=== PATIENT | male | born 1995 | race Caucasian/White ===

== ENCOUNTER 2017-01-04 16:21 | Inpatient (IN) | payer OTHER ==
[2017-01-04] MEDS ORDERED: NORCO 5/325 MG TAB PO PRN (17:35)
[2017-01-04] MEDS: NS 1000 ML 1,000 ML IV SCH (17:57)
[2017-01-04 18:03] LABS: BASOPHILS # (AUTO) 0.1 X10^3/uL (0.0-0.1); EOSINOPHILS # (AUTO) 0.1 x10^3/uL (0.0-0.2); EOSINOPHILS % (AUTO) 0.9 % (0.9-2.9); HEMATOCRIT 49.5 % (42.0-54.0); HEMOGLOBIN 17.4 g/dL (13.5-18.0); LYMPHOCYTES # (AUTO) 2.4 X10^3/uL (1.3-2.9); LYMPHOCYTES % (AUTO) 25.4 % (21.0-51.0); MEAN CORPUSCULAR HEMOGLOBIN 30.7 pg (27.0-34.0); MEAN CORPUSCULAR HGB CONC 35.1 g/dL (33.0-35.0); MEAN CORPUSCULAR VOLUME 87.5 fL (80.0-100.0); MEAN PLATELET VOLUME 7.2 fL (7.4-11.0); MONOCYTES # (AUTO) 0.8 x10^3/uL (0.3-0.8); MONOCYTES % (AUTO) 7.9 % (0.0-13.0); NEUTROPHILS # (AUTO) 6.2 x10^3/uL (2.2-4.8); NEUTROPHILS % (AUTO) 64.8 % (42.0-75.0); PLATELET COUNT 312 X10^3/uL (150.0-450.0); RED BLOOD COUNT 5.65 X10^6/uL (4.7-6.0); RED CELL DISTRIBUTION WIDTH 12.4 % (11.6-16.5); WHITE BLOOD COUNT 9.5 X10^3/uL (3.6-10.0)
[2017-01-04] MEDS: TORADOL 30 MG VIAL IVP SCH ×2 (18:16→23:48)
[2017-01-04 18:19] LABS: HEMOGLOBIN A1C 10.8 % (4.5-6.2)
[2017-01-04 18:28] LABS: ALANINE AMINOTRANSFERASE 20 Units/L (12-78); ALBUMIN 3.9 g/dL (3.4-5.0); ALKALINE PHOSPHATASE 112 Units/L (46-116); ASPARTATE AMINO TRANSFERASE 12 Units/L (15-37); BLOOD UREA NITROGEN 22 mg/dL (7-18); CALCIUM 8.8 mg/dL (8.5-10.1); CARBON DIOXIDE 17.3 mmol/L (21-32); CHLORIDE 95 mmol/L (98-107); COR NA(FOR HYPERGLY) 140 mmol/L (136-145); CREATININE 1.24 mg/dL (0.70-1.30); FREE T4 (FREE THYROXINE) 1.37 ng/dL (0.76-1.46); GLUCOSE 383 mg/dL (65-99); SODIUM 133 mmol/L (136-145); TOTAL PROTEIN 7.9 g/dL (6.4-8.2); TSH (3RD GENERATION) 4.401 uIU/mL (0.358-3.74); eGFR BLACK RACES > 60 (>60); eGFR NON BLACK RACES > 60 (>60)
--- NOTE | 2017-01-04 20:30 | RAD ---
HISTORY: Shortness of breath Study: Two-view chest Comparison: None Findings: The trachea is midline. The cardiac silhouette is unremarkable. The lungs are clear without focal infiltrate or effusion. The bony thorax is unremarkable. IMPRESSION: 1. No acute cardiopulmonary disease. Reported By:
[2017-01-04 20:47] VITALS: BMI 24.1
[2017-01-04] MEDS: COLACE CAP 100 MG PO SCH (21:53)
[2017-01-04] MEDS: MILK OF MAGNESIA PO SCH (21:53)
[2017-01-04] MEDS: SNACK - Diabetic Appropriate PO SCH (21:54)
[2017-01-04] MEDS: TOUJEO SOLOSTAR PEN SC SCH (21:54)
[2017-01-04] MEDS: HumuLIN R SUBCUT PRN (21:55)
[2017-01-04 22:07] LABS: BILIRUBIN,URINE NEGATIVE (NEGATIVE); BLOOD/HEMOGLOBIN,URINE NEGATIVE (NEGATIVE); GLUCOSE, URINE 4+ (NEGATIVE); KETONES,URINE 4+ (NEGATIVE); LEUKOCYTE ESTERASE ,URINE NEGATIVE (NEGATIVE); NITRITES,URINE NEGATIVE (NEGATIVE); PROTEIN,URINE NEGATIVE (NEGATIVE); UROBILINOGEN,URINE NORMAL (NORMAL)
[2017-01-04 22:19] LABS: AMORPHOUS SEDIMENT,UR TRACE /HPF (NEGATIVE); APPEARANCE,URINE CLEAR (CLEAR); BACTERIA,URINE TRACE /HPF (NEGATIVE); COLOR,URINE PALE YELLOW (YELLOW); RBC,URINE 0-1 /HPF (NEGATIVE); SQUAMOUS EPITHELIAL CELL,UR RARE /HPF (NEGATIVE)
[2017-01-05] MEDS: TORADOL 30 MG VIAL IVP SCH (06:09)
--- NOTE | 2017-01-05 10:28 | DR.UPDATE ---
H&P Update History and Physical Update: History and Physical reviewed and patient examined. SEE SCANNED H & P FROM DR PARKS'S OFFICE COMPLETED ON 2016 Changes noted: NO
--- NOTE | 2017-01-05 10:31 | PCM.PROG ---
Progress Note - Progress Note for Day of Date: 01/05/17 - Subjective Subjective: 21 WM ADMITTED ONE DAY AGO WITH UNCONTROLLED BLOOD SUGAR AND RIGHT SHOULDER PAIN. PT BS ON CMP 525 THIS AM, INCREASE PO WATER INTAKE, URINE ACETONE , SSI AND TOUJEO, REPEAT LABS THIS AFTERNOON, MRI SHOULDER PENDING - Past Medical Family Social History Past Med/Fam/Surg Hx: No changes since H&P Allergies: Allergies No Known Drug Allergies Allergy (Verified 01/04/17 17:56) - Review of Systems ROS: No change since H&P - Vital Signs and I&O's Vital Signs: Temperature 97.8 F Pulse Rate [Apical] 53 Respiratory Rate 18 Blood Pressure [Right Arm] 117/61 Blood Pressure [Left Arm] 112/62 O2 Sat by Pulse Oximetry 98 Intake and Output: Intake & Output 01/02/17 01/03/17 01/04/17 01/05/17 11:59 11:59 11:59 11:59 Intake Total 1900 Output Total 1600 Balance 300 - Physical Exam Oriented: Normal Eyes: Normal Ear: Normal Nose: Normal Throat: Normal Respiratory: Normal Cardiovascular: Normal : Normal Auscultation: Bowel Sounds: Normal Tenderness: Epigastric Skin: Normal Musculoskeletal: Right, Shoulder, Swelling, Tender Mood Description: Calm Speech Pattern: Clear, Appropriate - Laboratory and Diagnostics Result Diagrams: 01/04/17 17:50 01/04/17 20:47 Labs: Laboratory WBC 9.5 X10^3/uL (3.6-10.0) 01/04/17 17:50 RBC 5.65 X10^6/uL (4.7-6.0) 01/04/17 17:50 Hgb 17.4 g/dL (13.5-18.0) 01/04/17 17:50 Hct 49.5 % (42.0-54.0) 01/04/17 17:50 MCV 87.5 fL (80.0-100.0) 01/04/17 17:50 MCH 30.7 pg (27.0-34.0) 01/04/17 17:50 MCHC 35.1 g/dL (33.0-35.0) H 01/04/17 17:50 RDW 12.4 % (11.6-16.5) 01/04/17 17:50 Plt Count 312 X10^3/uL (150.0-450.0) 01/04/17 17:50 MPV 7.2 fL (7.4-11.0) L 01/04/17 17:50 Neut % 64.8 % (42.0-75.0) 01/04/17 17:50 Lymph % 25.4 % (21.0-51.0) 01/04/17 17:50 [place] % 7.9 % (0.0-13.0) 01/04/17 17:50 Eos % 0.9 % (0.9-2.9) 01/04/17 17:50 Baso % 1.0 % (0.2-1.0) 01/04/17 17:50 Neut # 6.2 x10^3/uL (2.2-4.8) H 01/04/17 17:50 Lymph # 2.4 X10^3/uL (1.3-2.9) 01/04/17 17:50 [place] # 0.8 x10^3/uL (0.3-0.8) 01/04/17 17:50 Eos # 0.1 x10^3/uL (0.0-0.2) 01/04/17 17:50 Baso # 0.1 X10^3/uL (0.0-0.1) 01/04/17 17:50 Absolute Nucleated RBC 0.0 /100WBC 01/04/17 17:50 Sodium 133 mmol/L (136-145) L 01/04/17 17:50 Corrected Sodium 140 mmol/L (136-145) 01/04/17 17:50 Potassium 4.5 mmol/L (3.5-5.1) 01/04/17 17:50 Chloride 95 mmol/L (98-107) L 01/04/17 17:50 Carbon Dioxide 17.3 mmol/L (21-32) L 01/04/17 17:50 BUN 22 mg/dL (7-18) H 01/04/17 17:50 Creatinine 1.24 mg/dL (0.70-1.30) 01/04/17 17:50 Est GFR (MDRD) Af Amer > 60 (>60) 01/04/17 17:50 Est GFR (MDRD) Non-Af > 60 (>60) 01/04/17 17:50 Glucose 525 mg/dL (65-99) H* 01/04/17 20:47 Hemoglobin A1c 10.8 % (4.5-6.2) H 01/04/17 17:50 Calcium 8.8 mg/dL (8.5-10.1) 01/04/17 17:50 Corrected Calcium TNP 01/04/17 17:50 Total Bilirubin 1.00 mg/dL (0.2-1.0) 01/04/17 17:50 AST 12 Units/L (15-37) L 01/04/17 17:50 ALT 20 Units/L (12-78) 01/04/17 17:50 Alkaline Phosphatase 112 Units/L (46-116) 01/04/17 17:50 Total Protein 7.9 g/dL (6.4-8.2) 01/04/17 17:50 Albumin 3.9 g/dL (3.4-5.0) 01/04/17 17:50 Globulin 4.0 g/dL (2.5-4.5) 01/04/17 17:50 Albumin/Globulin Ratio 1.0 Ratio (1.1-2.1) L 01/04/17 17:50 Free T4 1.37 ng/dL (0.76-1.46) 01/04/17 17:50 TSH 3rd Generation 4.401 uIU/mL (0.358-3.74) H 01/04/17 17:50 Specimen Type Clean catch urine 01/04/17 21:31 Urine Color Pale yellow (YELLOW) 01/04/17 21:31 Urine Appearance Clear (CLEAR) 01/04/17 21:31 Urine pH 5.0 (5.0 - 8.0) 01/04/17 21:31 Ur Specific [place] 1.020 (1.000-1.030) 01/04/17 21:31 Urine Protein Negative (NEGATIVE) 01/04/17 21:31 Urine Glucose (UA) 4+ (NEGATIVE) 01/04/17 21:31 Urine Ketones 4+ (NEGATIVE) 01/04/17 21:31 Urine Occult Blood Negative (NEGATIVE) 01/04/17 21:31 Urine Nitrite Negative (NEGATIVE) 01/04/17 21:31 Urine Bilirubin Negative (NEGATIVE) 01/04/17 21:31 Urine Urobilinogen Normal (NORMAL) 01/04/17 21:31 Ur Leukocyte Esterase Negative (NEGATIVE) 01/04/17 21:31 Urine RBC 0-1 /HPF (NEGATIVE) 01/04/17 21:31 Urine WBC None seen /HPF (NEGATIVE) 01/04/17 21:31 Ur Squamous Epith Cells Rare /HPF (NEGATIVE) 01/04/17 21:31 Amorphous Sediment Trace /HPF (NEGATIVE) 01/04/17 21:31 Urine Bacteria Trace /HPF (NEGATIVE) 01/04/17 21:31 Ur Culture Indicated? Yes/culture set up 01/04/17 21:31 - Plan (1) Uncontrolled diabetes mellitus Status: Acute Qualifiers: Diabetes mellitus type: D Diabetes mellitus complication status: D Diabetes mellitus complication detail: D Diabetic retinopathy severity: D Proliferative retinopathy type: P Diabetes mellitus macular edema: D Diabetes mellitus spa assistant manager insulin use: D Laterality: L Chronic kidney disease stage: C Plan: ACETONE LEVEL, SSI, AGGRESSIVE HYDRATION (2) Shoulder pain, acute Status: Acute Qualifiers: Laterality: L (3) Shoulder joint pain Status: Acute Qualifiers: Laterality: L
[2017-01-05] MEDS: NS 1000 ML 1,000 ML IV SCH ×2 (11:49→20:35)
[2017-01-05] MEDS: HumuLIN R SUBCUT PRN ×2 (12:19→20:37)
[2017-01-05] MEDS: MILK OF MAGNESIA PO SCH ×2 (13:56→20:36)
--- NOTE | 2017-01-05 14:51 | MRI ---
MRI right shoulder without contrast Indication: Right shoulder pain Technique: Multisequence, multiplanar MR images of the right shoulder were obtained without IV contr ast. Comparison: None Findings: A small bone island is noted within the humeral head. Marrow signal is otherwise normal. N o acute fracture, malalignment or suspicious osseous lesion is seen. There is a low grade, partial thickness interstitial tear of the cranial subscapularis tendon near i ts humeral insertion (image 15-16, series 501, image 9-12, series 901). The long head biceps tendon is intact and remains appropriately positioned within the bicipital groove, although small fluid is present within the extra-articular long head biceps tendon sheath. The supraspinatus, infraspinatus and teres minor are intact. No edema or atrophy of the rotator cuff musculature is seen. The glenohumeral and AC joint appear well maintained without significant degenerative change. The ty pe 2 acromion demonstrates mild lateral downsloping with encroachment upon the subjacent supraspinat us. There is no significant glenohumeral joint effusion or fluid within the subdeltoid/subacromial b ursa. No focal labral defects are identified. Impression: 1. Low-grade, partial-thickness interstitial tear of the distal subscapularis tendon, as detailed ab ove. 2. Mild tenosynovitis of the long head biceps tendon, which is otherwise intact and remains appropri ately positioned within the bicipital groove. 3. Mild lateral downsloping of the type 2 acromion with encroachment upon the supraspinatus. Please correlate clinically for signs of impingement. Reported By:
[2017-01-05 16:09] LABS: BLOOD UREA NITROGEN 21 mg/dL (7-18); CALCIUM 8.1 mg/dL (8.5-10.1); CARBON DIOXIDE 20.6 mmol/L (21-32); CHLORIDE 104 mmol/L (98-107); COR NA(FOR HYPERGLY) 141 mmol/L (136-145); CREATININE 1.32 mg/dL (0.70-1.30); GLUCOSE 283 mg/dL (65-99); SODIUM 137 mmol/L (136-145); eGFR BLACK RACES > 60 (>60); eGFR NON BLACK RACES > 60 (>60)
[2017-01-05] MEDS: COLACE CAP 100 MG PO SCH (20:36)
[2017-01-05] MEDS: TOUJEO SOLOSTAR PEN SC SCH (20:36)
[2017-01-05] MEDS: SNACK - Diabetic Appropriate PO SCH ×2 (20:39→21:31)
[2017-01-06 06:05] LABS: BASOPHILS # (AUTO) 0.1 X10^3/uL (0.0-0.1); BASOPHILS % (AUTO) 1.2 % (0.2-1.0); EOSINOPHILS # (AUTO) 0.2 x10^3/uL (0.0-0.2); EOSINOPHILS % (AUTO) 2.4 % (0.9-2.9); HEMATOCRIT 40.8 % (42.0-54.0); HEMOGLOBIN 14.6 g/dL (13.5-18.0); LYMPHOCYTES % (AUTO) 40.9 % (21.0-51.0); MEAN CORPUSCULAR HEMOGLOBIN 30.6 pg (27.0-34.0); MEAN CORPUSCULAR HGB CONC 35.9 g/dL (33.0-35.0); MEAN CORPUSCULAR VOLUME 85.2 fL (80.0-100.0); MEAN PLATELET VOLUME 6.9 fL (7.4-11.0); MONOCYTES # (AUTO) 0.7 x10^3/uL (0.3-0.8); MONOCYTES % (AUTO) 9.3 % (0.0-13.0); NEUTROPHILS # (AUTO) 3.4 x10^3/uL (2.2-4.8); NEUTROPHILS % (AUTO) 46.2 % (42.0-75.0); PLATELET COUNT 237 X10^3/uL (150.0-450.0); RED BLOOD COUNT 4.79 X10^6/uL (4.7-6.0); RED CELL DISTRIBUTION WIDTH 12.4 % (11.6-16.5); WHITE BLOOD COUNT 7.4 X10^3/uL (3.6-10.0)
[2017-01-06 06:25] LABS: ALANINE AMINOTRANSFERASE 16 Units/L (12-78); ALBUMIN 2.8 g/dL (3.4-5.0); ALKALINE PHOSPHATASE 82 Units/L (46-116); ASPARTATE AMINO TRANSFERASE 9 Units/L (15-37); BLOOD UREA NITROGEN 16 mg/dL (7-18); CALCIUM 7.7 mg/dL (8.5-10.1); CHLORIDE 109 mmol/L (98-107); COR CA(FOR HYPOALB) 8.7 mg/dL (8.5-10.1); COR NA(FOR HYPERGLY) 143 mmol/L (136-145); CREATININE 0.99 mg/dL (0.70-1.30); GLUCOSE 147 mg/dL (65-99); SODIUM 142 mmol/L (136-145); TOTAL PROTEIN 5.9 g/dL (6.4-8.2); eGFR BLACK RACES > 60 (>60); eGFR NON BLACK RACES > 60 (>60)
[2017-01-06 07:01] LABS: PLATELET MORPHOLOGY COMMENT NORMAL (NORMAL)
[2017-01-06] MEDS: NS 1000 ML 1,000 ML IV SCH ×2 (08:56→22:30)
[2017-01-06] MEDS: MILK OF MAGNESIA PO SCH ×2 (08:57→21:04)
[2017-01-06] MEDS: HumuLIN R SUBCUT PRN ×3 (12:18→21:05)
--- NOTE | 2017-01-06 13:35 | PCM.PROG ---
Progress Note - Progress Note for Day of Date: 01/06/17 - Subjective Subjective: 21 WM ADMITTED ONE DAY AGO WITH UNCONTROLLED BLOOD SUGAR AND RIGHT SHOULDER PAIN. PT BS ON CMP 147 THIS AM, INCREASE PO WATER INTAKE, URINE ACETONE ON 01/05 LARGE, MRI OF SHOULDER RESULT REVIEWED WITH PT, DISCUSSED OP ORTHO CONSULT. WILL CONTINUE BLOOD SUGAR CONTROL, REPEAT AM LABS - Past Medical Family Social History Past Med/Fam/Surg Hx: No changes since H&P Allergies: Allergies No Known Drug Allergies Allergy (Verified 01/04/17 17:56) - Review of Systems ROS: No change since H&P - Vital Signs and I&O's Vital Signs: Temperature 97.5 F Pulse Rate [Apical] 70 Respiratory Rate 20 Blood Pressure [Right Arm] 112/63 Blood Pressure [Left Arm] 112/62 O2 Sat by Pulse Oximetry 98 Intake and Output: Intake & Output 01/04/17 01/05/17 01/06/17 01/07/17 11:59 11:59 11:59 11:59 Intake Total 1900 5920 Output Total 1600 725 Balance 300 5195 - Physical Exam Oriented: Normal Eyes: Normal Ear: Normal Nose: Normal Throat: Normal Respiratory: Normal Cardiovascular: Normal : Normal Auscultation: Bowel Sounds: Normal Tenderness: Epigastric Skin: Normal Musculoskeletal: Right, Shoulder, Swelling, Tender Mood Description: Calm Speech Pattern: Clear, Appropriate - Laboratory and Diagnostics Result Diagrams: 01/06/17 03:05 01/06/17 03:05 Labs: 01/04/17 21:31 Urine,Clean Catch Urine Culture - Final Laboratory WBC 7.4 X10^3/uL (3.6-10.0) 01/06/17 03:05 RBC 4.79 X10^6/uL (4.7-6.0) 01/06/17 03:05 Hgb 14.6 g/dL (13.5-18.0) 01/06/17 03:05 Hct 40.8 % (42.0-54.0) L 01/06/17 03:05 MCV 85.2 fL (80.0-100.0) 01/06/17 03:05 MCH 30.6 pg (27.0-34.0) 01/06/17 03:05 MCHC 35.9 g/dL (33.0-35.0) H 01/06/17 03:05 RDW 12.4 % (11.6-16.5) 01/06/17 03:05 Plt Count 237 X10^3/uL (150.0-450.0) 01/06/17 03:05 Plt Count Comment Adequate (ADEQUATE) 01/06/17 03:05 MPV 6.9 fL (7.4-11.0) L 01/06/17 03:05 Neut % 46.2 % (42.0-75.0) 01/06/17 03:05 Lymph % 40.9 % (21.0-51.0) 01/06/17 03:05 Real % 9.3 % (0.0-13.0) 01/06/17 03:05 Eos % 2.4 % (0.9-2.9) 01/06/17 03:05 Baso % 1.2 % (0.2-1.0) H 01/06/17 03:05 Neut # 3.4 x10^3/uL (2.2-4.8) 01/06/17 03:05 Lymph # 3.0 X10^3/uL (1.3-2.9) H 01/06/17 03:05 Real # 0.7 x10^3/uL (0.3-0.8) 01/06/17 03:05 Eos # 0.2 x10^3/uL (0.0-0.2) 01/06/17 03:05 Baso # 0.1 X10^3/uL (0.0-0.1) 01/06/17 03:05 Absolute Nucleated RBC 0.4 /100WBC 01/06/17 03:05 Plt Morphology Comment Normal (NORMAL) 01/06/17 03:05 RBC Morphology Normal (NORMAL) 01/06/17 03:05 Sodium 142 mmol/L (136-145) 01/06/17 03:05 Corrected Sodium 143 mmol/L (136-145) 01/06/17 03:05 Potassium 3.2 mmol/L (3.5-5.1) L 01/06/17 03:05 Chloride 109 mmol/L (98-107) H 01/06/17 03:05 Carbon Dioxide 24.0 mmol/L (21-32) 01/06/17 03:05 BUN 16 mg/dL (7-18) 01/06/17 03:05 Creatinine 0.99 mg/dL (0.70-1.30) 01/06/17 03:05 Est GFR (MDRD) Af Amer > 60 (>60) 01/06/17 03:05 Est GFR (MDRD) Non-Af > 60 (>60) 01/06/17 03:05 Glucose 147 mg/dL (65-99) H 01/06/17 03:05 Hemoglobin A1c 10.8 % (4.5-6.2) H 01/04/17 17:50 Calcium 7.7 mg/dL (8.5-10.1) L 01/06/17 03:05 Corrected Calcium 8.7 mg/dL (8.5-10.1) 01/06/17 03:05 Total Bilirubin 0.40 mg/dL (0.2-1.0) 01/06/17 03:05 AST 9 Units/L (15-37) L 01/06/17 03:05 ALT 16 Units/L (12-78) 01/06/17 03:05 Alkaline Phosphatase 82 Units/L (46-116) 01/06/17 03:05 Total Protein 5.9 g/dL (6.4-8.2) L 01/06/17 03:05 Albumin 2.8 g/dL (3.4-5.0) L 01/06/17 03:05 Globulin 3.1 g/dL (2.5-4.5) 01/06/17 03:05 Albumin/Globulin Ratio 0.9 Ratio (1.1-2.1) L 01/06/17 03:05 Free T4 1.37 ng/dL (0.76-1.46) 01/04/17 17:50 TSH 3rd Generation 4.401 uIU/mL (0.358-3.74) H 01/04/17 17:50 Specimen Type Clean catch urine 01/04/17 21:31 Urine Color Pale yellow (YELLOW) 01/04/17 21:31 Urine Appearance Clear (CLEAR) 01/04/17 21:31 Urine pH 5.0 (5.0 - 8.0) 01/04/17 21:31 Ur Specific [place] 1.020 (1.000-1.030) 01/04/17 21:31 Urine Protein Negative (NEGATIVE) 01/04/17 21:31 Urine Glucose (UA) 4+ (NEGATIVE) 01/04/17 21:31 Urine Ketones 4+ (NEGATIVE) 01/04/17 21:31 Urine Occult Blood Negative (NEGATIVE) 01/04/17 21:31 Urine Nitrite Negative (NEGATIVE) 01/04/17 21:31 Urine Bilirubin Negative (NEGATIVE) 01/04/17 21:31 Urine Acetone Large (NEGATIVE) 01/05/17 11:45 Urine Urobilinogen Normal (NORMAL) 01/04/17 21:31 Ur Leukocyte Esterase Negative (NEGATIVE) 01/04/17 21:31 Urine RBC 0-1 /HPF (NEGATIVE) 01/04/17 21:31 Urine WBC None seen /HPF (NEGATIVE) 01/04/17 21:31 Ur Squamous Epith Cells Rare /HPF (NEGATIVE) 01/04/17 21:31 Amorphous Sediment Trace /HPF (NEGATIVE) 01/04/17 21:31 Urine Bacteria Trace /HPF (NEGATIVE) 01/04/17 21:31 Ur Culture Indicated? Yes/culture set up 01/04/17 21:31 Acetone, Semi-Quant Small (NEGATIVE) H 01/05/17 13:57 - Plan (1) Uncontrolled diabetes mellitus Status: Acute Qualifiers: Diabetes mellitus type: D Diabetes mellitus complication status: D Diabetes mellitus complication detail: D Diabetic retinopathy severity: D Proliferative retinopathy type: P Diabetes mellitus macular edema: D Diabetes mellitus group home insulin use: D Laterality: L Chronic kidney disease stage: C Plan: ACETONE LEVEL, SSI, AGGRESSIVE HYDRATION (2) Shoulder pain, acute Status: Acute Qualifiers: Laterality: L Plan: SEE MRI REPORT, PAIN CONTROL. OP ORTHO CONSULT (3) Shoulder joint pain Status: Acute Qualifiers: Laterality: L
[2017-01-06] MEDS: COLACE CAP 100 MG PO SCH (21:04)
[2017-01-06] MEDS: TOUJEO SOLOSTAR PEN SC SCH (21:05)
[2017-01-06] MEDS: SNACK - Diabetic Appropriate PO SCH (21:13)
[2017-01-07] MEDS: NS 1000 ML 1,000 ML IV SCH (05:29)
[2017-01-07] MEDS ORDERED: K-RIDER 10 MEQ/NS 100 ML 10 MEQ/100 ML BAG IV PRN (06:10)
[2017-01-07] MEDS ORDERED: K-LYTE EFFERVESCENT PO PRN (06:10)
[2017-01-07] MEDS ORDERED: POTASSIUM CHLORIDE LIQ 20 MEQ UDC PO PRN (06:10)
[2017-01-07] MEDS ORDERED: K-DUR TAB 20 MEQ PO PRN (06:10)
[2017-01-07 06:36] LABS: ALANINE AMINOTRANSFERASE 16 Units/L (12-78); ALBUMIN 2.9 g/dL (3.4-5.0); ALKALINE PHOSPHATASE 80 Units/L (46-116); ASPARTATE AMINO TRANSFERASE 11 Units/L (15-37); BLOOD UREA NITROGEN 11 mg/dL (7-18); CALCIUM 8.1 mg/dL (8.5-10.1); CARBON DIOXIDE 31.2 mmol/L (21-32); CHLORIDE 108 mmol/L (98-107); CREATININE 0.91 mg/dL (0.70-1.30); GLUCOSE 76 mg/dL (65-99); SODIUM 144 mmol/L (136-145); eGFR BLACK RACES > 60 (>60); eGFR NON BLACK RACES > 60 (>60)
[2017-01-07 06:50] LABS: BASOPHILS # (AUTO) 0.1 X10^3/uL (0.0-0.1); BASOPHILS % (AUTO) 0.9 % (0.2-1.0); EOSINOPHILS # (AUTO) 0.2 x10^3/uL (0.0-0.2); EOSINOPHILS % (AUTO) 2.6 % (0.9-2.9); HEMATOCRIT 41.4 % (42.0-54.0); HEMOGLOBIN 14.6 g/dL (13.5-18.0); LYMPHOCYTES # (AUTO) 2.7 X10^3/uL (1.3-2.9); LYMPHOCYTES % (AUTO) 42.1 % (21.0-51.0); MEAN CORPUSCULAR HEMOGLOBIN 30.4 pg (27.0-34.0); MEAN CORPUSCULAR HGB CONC 35.3 g/dL (33.0-35.0); MEAN PLATELET VOLUME 6.8 fL (7.4-11.0); MONOCYTES # (AUTO) 0.6 x10^3/uL (0.3-0.8); MONOCYTES % (AUTO) 9.7 % (0.0-13.0); NEUTROPHILS # (AUTO) 2.9 x10^3/uL (2.2-4.8); NEUTROPHILS % (AUTO) 44.7 % (42.0-75.0); PLATELET COUNT 219 X10^3/uL (150.0-450.0); RED BLOOD COUNT 4.81 X10^6/uL (4.7-6.0); RED CELL DISTRIBUTION WIDTH 12.5 % (11.6-16.5); WHITE BLOOD COUNT 6.4 X10^3/uL (3.6-10.0)
[2017-01-07] MEDS: MILK OF MAGNESIA PO SCH (09:30)
[2017-01-07 11:15] VITALS: BP 122/69
[2017-01-07] MEDS ORDERED: TOUJEO SOLOSTAR PEN SC SCH (21:00)
== END 2017-01-07 10:40 | disposition home or self-care (01) | DRG 639 ==
LOC: MED/SURG 16:21 → UNDOADMOB 16:21 → MED/SURG 17:03 → OBSVTOIN 01-05 08:30
PROVIDERS: ADMIT Internal Medicine; ATTEND Internal Medicine
DX: E10.65 Type 1 diabetes mellitus with hyperglycemia (principal); E10.42 Type 1 diabetes mellitus with diabetic polyneuropathy; M25.511 Pain in right shoulder; M19.011 Primary osteoarthritis, right shoulder
CPT/HCPCS: 36415; 71020; 73221; 80048; 80053; 81001; 82009; 82947; 83036; 84439; 84443; 85025; 87086; A4222; G0378; J1815; J1885